=== PATIENT | female | born 1980 | race Caucasian/White ===

== ENCOUNTER 2016-09-10 16:00 | Emergency (ER) | payer OTHER ==
[2016-09-10 16:00] VITALS: BMI 17.7
[2016-09-10 16:09] VITALS: BP 98/66; TEMP 98.7
[2016-09-10 16:30] VITALS: PULSE 76; RESP 18; O2SAT 98
[2016-09-10] MEDS ORDERED: Sodium Chloride 0.9% 1,000 ML IV ONE (16:32)
--- NOTE | 2016-09-10 16:46 | C.PDOC ---
History Of Present Illness Patient is a 35-year-old female (), PMHx includes Anemia, Anxiety, Bronchitis, Depression, Gastritis, Gall Bladder Disease, and Herpes, presents to the emergency department with complaints of pelvic pain x 2 days. Pain is non -radiating and associated with nausea and vaginal bleeding (but only when she wipes). Patient denies fevers, vaginal discharge, back pain, dizziness, dysuria , or any other associated symptoms. LMP was end of June. . No other complaints at this time. Pt is unsure as to whether or not she's . PMD: Dr Brown Time Seen by Provider: 09/10/16 16:30 Chief Complaint (Nursing): Female Genitourinary History Per: Patient History/Exam Limitations: no limitations Onset/Duration Of Symptoms: Days (2) Current Symptoms Are (Timing): Still Present Severity: Moderate Past Medical History Reviewed: Historical Data, Nursing Documentation, Vital Signs Vital Signs: Last Vital Signs Temp 98.7 F 09/10/16 16:23 Pulse 76 09/10/16 16:23 Resp 18 09/10/16 16:23 BP 98/66 L 09/10/16 16:23 Pulse Ox 98 09/10/16 18:40 - Medical History PMH: Anemia, Anxiety, Bronchitis, Depression (NO MEDS), Gastritis, Gall Bladder Disease, Sexually Transmitted Disease (HERPES) Denies: Chronic Kidney Disease Other PMH: [facility]ct[facility] (had [facility] ESOPHAGOGASTRODUODENOSCOPY [EGD] W/CLOSED BIOPSY (03/04/14) Family History: States: No Known Family Hx - Social History Hx Tobacco Use: Yes Hx Alcohol Use: No Hx Substance Use: No - Immunization History Hx Tetanus Toxoid Vaccination: Yes Hx Influenza Vaccination: Yes Hx Pneumococcal Vaccination: Yes Review Of Systems Except As Marked, All Systems Reviewed And Found Negative. Constitutional: Negative for: Fever Gastrointestinal: Positive for: Nausea. Negative for: Vomiting Genitourinary: Positive for: Vaginal Bleeding, Pelvic Pain. Negative for: Dysuria, Frequency, Vaginal Discharge Musculoskeletal: Negative for: Back Pain Neurological: Negative for: Weakness, Numbness, Headache, Dizziness Physical Exam - Physical Exam Appears: Well, Non-toxic, No Acute Distress Skin: Warm, Dry, No Rash Head: Atraumatic, Normacephalic Eye(s): bilateral: Normal Inspection, EOMI Ear(s): Bilateral: Normal Nose: Normal Oral Mucosa: Moist Tongue: Normal Appearing Lips: Normal Appearing Teeth: Normal Dentition Throat: Normal Neck: Normal ROM Lymphatic: Deferred Chest: Symmetrical Cardiovascular: Rhythm Regular, No Murmur Respiratory: Normal Breath Sounds, No Accessory Muscle Use Gastrointestinal/Abdominal: Soft, Tenderness (mild, suprapubic and right pelvic) , No Guarding, No Rebound Rectal: Deferred Back: Normal Inspection Extremity: Normal ROM Extremity: Bilateral: Atraumatic, Normal ROM Pulses: Left Radial: Normal, Right Radial: Normal Neurological/Psych: Oriented x3, Normal Speech ED Course And Treatment - Laboratory Results Result Diagrams: 09/10/16 17:02 09/10/16 17:02 O2 Sat by Pulse Oximetry: 98 Medical Decision Making Medical Decision Making: Initial Impression: Threatened vs. ectopic Initial Plan: * Type and Screen * Beta HCG, CMP * CBC * IVF * UA/HCG * Reassess and Disposition Progress Note(s): 6:10 PM - Patient has returned from US. Awaiting US reading 6:28 PM - [facility] reading as noted below. Will d/c patient home. I explained to the pt that there is a strong possibility she will have a complete ( and to return to the ER if pain/symptoms worsen); otherwise, follow up with OB. Transvaginal ultrasound reading by [facility]: EXAM: US , Transvaginal CLINICAL HISTORY: 35 years old, female; Signs and symptoms; Lmp or gestational age (in weeks): ; Other: Vaginal bleeding/pain; ; Additional info: w/ vaginal bleeding; R/O ectopic TECHNIQUE: Real-time transvaginal obstetrical ultrasound of the maternal pelvis and a first trimester with image documentation. Transvaginal imaging was used for better evaluation of the fetus and adnexa. COMPARISON: No relevant prior studies available. FINDINGS: Gestation: A nabothian cyst is seen in the cervix. There is an intrauterine gestational sac measuring 3 x 0.8 x 1.4 cm. The sac is a somewhat elongated in the sagittal view. Intraluminal echoes are present within the sac. There is no yolk sac. There is no pole. Placenta/amniotic fluid: Cannot be adequately evaluated due to the early gestational age. Uterus/cervix: Unremarkable. No myometrial mass. Ovaries: The left ovary measures 3 x 2 x 2.5 cm. Subcentimeter follicles are present. Blood flow seen in the left ovary on pulsed Doppler examination. The right ovary measures 3.2 x 3.6 x 2 cm. Subcentimeter follicles are seen in the right ovary. A post demonstrated on pulsed Doppler examination. No mass. Free fluid: There is no free fluid in the posterior cul-de-sac. IMPRESSION: [facility] Final Radiology Report [id number] Name: JUNIOR CHRISTINA Age: 35Years F Date: 09/10/2016 SSN: [id number] : 1980 Study: US TRANSVAGINAL Requesting Physician: Albino Maza Images: 69 Addl Studies: [id number] - US TRANSABD FIRST TRIMESTER FIRST GEST (1) Provided Clinical History: w/ vaginal bleeding; r/o ectopic CONFIDENTIALITY STATEMENT This transmission is confidential and is intended to be a privileged communication. It is intended only for the use of the addressee. Access to this message by anyone else is unauthorized. If you are not the intended recipient, any disclosure, copying, distribution or any action taken, or omitted to be taken in reliance on it is prohibited and may be unlawful. If you received this communication in error, please notify us by telephone, so that return of this document to us can be arranged. Page 2 of 3 1. Single intrauterine gestational sac with a calculated age of 6 weeks and one day plus or -0 weeks and 4 days. The sac is misshapen which is worrisome for a nonviable . There is no yolk sac. There is no pole. Serial beta hCG measurement and followup ultrasound might be considered to determine viability. EXAM: US First Trimester, Transabdominal CLINICAL HISTORY: 35 years old, female; Signs and symptoms; Lmp or gestational age (in weeks): ; Other: Vaginal bleeding/pain; ; Additional info: w/ vaginal bleeding; R/O ectopic TECHNIQUE: Real-time transabdominal obstetrical ultrasound of the maternal pelvis and a first trimester with image documentation. EXAM DATE/TIME: Exam ordered 09/10/2016 4:58 PM COMPARISON: CT - ABD PELVIS W/O PO OR IV CONT 12/27/2014 2:57:35 PM FINDINGS: Gestation: The uterus measures 10.7 x 6.3 x 7.3 cm. There is a gestational sac noted within the uterus. Placenta/amniotic fluid: Cannot be adequately evaluated due to the early gestational age. Uterus/cervix: Unremarkable. No myometrial mass. [facility] Final Radiology Report [id number] Name: JUNIOR CHRISTINA Age: 35Years F Date: 09/10/2016 SSN: [id number] : 1980 Study: US TRANSVAGINAL Requesting Physician: Albino Maza Images: 69 Addl Studies: [id number] - US TRANSABD FIRST TRIMESTER FIRST GEST (1) Provided Clinical History: w/ vaginal bleeding; r/o ectopic CONFIDENTIALITY STATEMENT This transmission is confidential and is intended to be a privileged communication. It is intended only for the use of the addressee. Access to this message by anyone else is unauthorized. If you are not the intended recipient, any disclosure, copying, distribution or any action taken, or omitted to be taken in reliance on it is prohibited and may be unlawful. If you received this communication in error, please notify us by telephone, so that return of this document to us can be arranged. Page 3 of 3 Ovaries: The ovaries are not seen as separate structures. Free fluid: No free fluid. Bladder: The bladder is poorly distended. IMPRESSION: 1. A gestational sac is noted within the uterus. For a full description of findings, please see the report from the transvaginal ultrasound done at the same time. 2. The ovaries are not seen as separate structures. Thank you for allowing us to participate in the care of your patient. Dictated and Authenticated by: Tangela Garvin MD 09/10/2016 6:23 PM Eastern Time ([place] & [place] . Disposition - Disposition Disposition: HOME/ ROUTINE Disposition Time: 18:35 Condition: FAIR Additional Instructions: Ms. Christina, thank you for letting us take care of you. You have a "threatened miscarriage". If your pain worsens, bleeding worsens, or if you start passing large clots/ tissue, then please come back to the ER right away. Otherwise, please follow up with your Photographic Colorist/PART TIME RECEPTIONIST physician on Monday (Dr. Tanvi Amezquita?). Take Tylenol for the pain. You also have a urinary tract infection. Take the antibiotic listed below as prescribed. Prescriptions: Cephalexin [cephalexin] 1 tab PO BID #14 cap Instructions: Threatened Miscarriage (ED), Urinary Tract Infection in Women (ED ) Forms: General Discharge Instructions, [facility] (Welsh) Print Language: [place] - POA Present On Arrival: None - Clinical Impression Clinical Impression: Threatened miscarriage in early - Scribe Statement The provider has reviewed the documentation as recorded by the Scribe (Hallie Verma) All medical record entries made by the Scribe were at my direction and personally dictated by me. I have reviewed the chart and agree that the record accurately reflects my personal performance of the history, physical exam, medical decision making, and the department course for this patient. I have also personally directed, reviewed, and agree with the discharge instructions and disposition.
[2016-09-10 17:13] LABS: BASO # 0.1 K/uL (0.0-0.2); BASO % 1.2 % (0.0-2.0); EOS # 0.2 K/uL (0.0-0.7); EOS % 1.6 % (0.0-4.0); HEMATOCRIT 33.7 % (34.0-47.0); LYMPH # 2.4 K/uL (1.0-4.3); LYMPH % 25.2 % (20.0-40.0); MEAN CELL VOLUME 82.2 fL (81.0-99.0); MEAN CORPUSCULAR HEMOGLOBIN 27.3 pg (27.0-31.0); MEAN CORPUSCULAR HGB CONC 33.2 g/dL (33.0-37.0); MEAN PLATELET VOLUME 9.1 fL (7.2-11.7); MONO # 0.6 K/uL (0.0-0.8); MONO % 6.1 % (0.0-10.0); RED CELL DISTRIBUTION WIDTH 13.2 % (11.5-14.5); WHITE BLOOD COUNT 9.5 K/uL (4.8-10.8)
[2016-09-10 17:22] LABS: URINE BACTERIA FEW (<OCC); URINE BILIRUBIN NEGATIVE (NEGATIVE); URINE BLOOD 3+ (NEGATIVE); URINE COLOR Yellow (YELLOW); URINE GLUCOSE (UA) NORMAL (Normal); URINE KETONE NEGATIVE (NEGATIVE); URINE LEUKOCYTE ESTERASE 2+ Leu/uL (Negative); URINE PROTEIN 1+ mg/dL (NEGATIVE); URINE UROBILINOGEN NORMAL mg/dL (0.2-1.0); WBC URINE 27 /hpf (0-5)
[2016-09-10 17:31] LABS: CHLORIDE 103 mmol/L (98-107); RBC URINE 10 /hpf (0-3)
[2016-09-10 17:32] LABS: POTASSIUM 3.8 mmol/L (3.6-5.2); SODIUM 137 mmol/L (132-148)
[2016-09-10 17:34] LABS: BILIRUBIN,TOTAL 0.5 mg/dL (0.2-1.3); CARBON DIOXIDE 21 mmol/L (22-30); GFR AFRICAN-AMERICAN > 60
[2016-09-10 17:35] LABS: ALB/GLOB RATIO 1.2 (1.0-2.1); ALKALINE PHOSPHATASE 55 U/L (38-126); ALT/SGPT 19 U/L (9-52); AST/SGOT 14 U/L (14-36); BLOOD UREA NITROGEN 6 mg/dL (7-17); CALCIUM 8.7 mg/dl (8.6-10.4); GLUCOSE,RANDOM 81 mg/dL (65-105); TOTAL PROTEIN 6.6 g/dL (6.3-8.3)
[2016-09-10] MEDS ORDERED: cefTRIAXone IV 1 gm in Dextros 50 ML IV STA (17:45)
[2016-09-10] MEDS ORDERED: cefTRIAXone IV 1 gm in Dextros 50 ML IVPB ONE (18:24)
--- NOTE | 2016-09-10 18:24 | US ---
EXAM: US , Transvaginal CLINICAL HISTORY: 35 years old, female; Signs and symptoms; Lmp or gestational age (in weeks): 07/14/2016; Other: Vaginal bleeding/pain; ; Additional info: w/ vaginal bleeding; R/O ectopic TECHNIQUE: Real-time transvaginal obstetrical ultrasound of the maternal pelvis and a first trimester with image documentation. Transvaginal imaging was used for better evaluation of the fetus and adnexa. COMPARISON: No relevant prior studies available. FINDINGS: Gestation: A nabothian cyst is seen in the cervix. There is an intrauterine gestational sac measuring 3 x 0.8 x 1.4 cm. The sac is a somewhat elongated in the sagittal view. Intraluminal echoes are present within the sac. There is no yolk sac. There is no pole. Placenta/amniotic fluid: Cannot be adequately evaluated due to the early gestational age. Uterus/cervix: Unremarkable. No myometrial mass. Ovaries: The left ovary measures 3 x 2 x 2.5 cm. Subcentimeter follicles are present. Blood flow seen in the left ovary on pulsed Doppler examination. The right ovary measures 3.2 x 3.6 x 2 cm. Subcentimeter follicles are seen in the right ovary. A post demonstrated on pulsed Doppler examination. No mass. Free fluid: There is no free fluid in the posterior cul-de-sac. IMPRESSION: 1. Single intrauterine gestational sac with a calculated age of 6 weeks and one day plus or -0 weeks and 4 days. The sac is misshapen which is worrisome for a nonviable . There is no yolk sac. There is no pole. Serial beta hCG measurement and followup ultrasound might be considered to determine viability. EXAM: US First Trimester, Transabdominal CLINICAL HISTORY: 35 years old, female; Signs and symptoms; Lmp or gestational age (in weeks): 07/14/2016; Other: Vaginal bleeding/pain; ; Additional info: w/ vaginal bleeding; R/O ectopic TECHNIQUE: Real-time transabdominal obstetrical ultrasound of the maternal pelvis and a first trimester with image documentation. EXAM DATE/TIME: Exam ordered 09/10/2016 4:58 PM COMPARISON: CT - ABD PELVIS W/O PO OR IV CONT 12/27/2014 2:57:35 PM FINDINGS: Gestation: The uterus measures 10.7 x 6.3 x 7.3 cm. There is a gestational sac noted within the uterus. Placenta/amniotic fluid: Cannot be adequately evaluated due to the early gestational age. Uterus/cervix: Unremarkable. No myometrial mass. Ovaries: The ovaries are not seen as separate structures. Free fluid: No free fluid. Bladder: The bladder is poorly distended. IMPRESSION: 1. A gestational sac is noted within the uterus. For a full description of findings, please see the report from the transvaginal ultrasound done at the same time. 2. The ovaries are not seen as separate structures.
== END 2016-09-10 18:57 | disposition home or self-care (01) ==
LOC: C.ER 16:00
DX: O20.0 Threatened abortion (principal); Z3A.01 Less than 8 weeks gestation of pregnancy
CPT/HCPCS: 76805; 76817; 80053; 81001; 84702; 84703; 85025; 86850; 86900; 96361; 96365; 99285; J0696; J7040

== ENCOUNTER 2016-09-11 04:04 | Emergency (ER) | payer OTHER ==
[2016-09-11 04:06] VITALS: BMI 17.7
[2016-09-11 04:25] VITALS: RESP 18
[2016-09-11] MEDS ORDERED: Acetaminophen 650mg/20.3ml solution UD PO STA (04:48)
[2016-09-11] MEDS ORDERED: Sodium Chloride 0.9% 1,000 ML IV ONE (04:51)
[2016-09-11 04:55] LABS: BASO # 0.2 K/uL (0.0-0.2); BASO % 1.3 % (0.0-2.0); EOS # 0.2 K/uL (0.0-0.7); EOS % 1.3 % (0.0-4.0); HEMOGLOBIN 11.8 g/dL (11.0-16.0); LYMPH # 2.9 K/uL (1.0-4.3); LYMPH % 16.8 % (20.0-40.0); MEAN CELL VOLUME 81.8 fL (81.0-99.0); MEAN CORPUSCULAR HEMOGLOBIN 26.8 pg (27.0-31.0); MEAN CORPUSCULAR HGB CONC 32.8 g/dL (33.0-37.0); MEAN PLATELET VOLUME 8.8 fL (7.2-11.7); MONO % 5.8 % (0.0-10.0); NEUT # 12.8 K/uL (1.8-7.0); NEUT % 74.8 % (50.0-75.0); RBC 4.41 Mil/uL (3.80-5.20); RED CELL DISTRIBUTION WIDTH 13.1 % (11.5-14.5); WHITE BLOOD COUNT 17.1 K/uL (4.8-10.8)
--- NOTE | 2016-09-11 04:59 | C.PDOC ---
History Of Present Illness 35 year old female, P:0, who presents to the ER 8 weeks with a complaint of abdominal pain, vomiting, and vaginal bleeding. Patient was seen and evaluated earlier today in the ER and discharged with a diagnosis of a threatened . Patient presents now with worsening pain and bleeding now; denies fever or chills. Time Seen by Provider: 09/11/16 04:45 Chief Complaint (Nursing): Female Genitourinary History Per: Patient History/Exam Limitations: no limitations Onset/Duration Of Symptoms: Hrs Current Symptoms Are (Timing): Still Present Location Of Pain/Discomfort: Suprapubic Radiation Of Pain To:: None Quality Of Discomfort: Unable To Describe Associated Symptoms: Vomiting. denies: Fever, Chills Exacerbating Factors: None Alleviating Factors: None Recent travel outside of the [place]: No Abnormal Vaginal Bleeding: Yes Past Medical History Reviewed: Historical Data, Nursing Documentation, Vital Signs Vital Signs: Last Vital Signs Temp 98.1 F 09/11/16 06:34 Pulse 77 09/11/16 06:34 Resp 18 09/11/16 06:34 BP 100/67 09/11/16 06:34 Pulse Ox 99 09/11/16 06:34 - Medical History PMH: Anemia, Anxiety, Bronchitis, Depression (NO MEDS), Gastritis, Gall Bladder Disease, Sexually Transmitted Disease (HERPES) - [facility] Procedures ESOPHAGOGASTRODUODENOSCOPY [EGD] W/CLOSED BIOPSY (03/04/14) Family History: States: Unknown Family Hx - Social History Hx Tobacco Use: Yes Hx Alcohol Use: No Hx Substance Use: No - Immunization History Hx Tetanus Toxoid Vaccination: Yes Hx Influenza Vaccination: Yes Hx Pneumococcal Vaccination: Yes Review Of Systems Except As Marked, All Systems Reviewed And Found Negative. Constitutional: Negative for: Fever, Chills Gastrointestinal: Positive for: Vomiting, Abdominal Pain Genitourinary: Positive for: Vaginal Bleeding Physical Exam - Physical Exam Appears: Non-toxic Skin: Normal Color, Warm, Dry Head: Atraumatic, Normacephalic Oral Mucosa: Moist Chest: Symmetrical, No Tenderness Cardiovascular: Rhythm Regular, No Murmur Respiratory: Normal Breath Sounds, No Rales, No Rhonchi, No Wheezing Gastrointestinal/Abdominal: Soft, Tenderness (Suprapubic) Pelvic: Normal External Exam, Vaginal Bleeding (moderate), No Vaginal Discharge , No Cervix Open Neurological/Psych: Oriented x3, Normal Speech, Normal Cognition ED Course And Treatment - Laboratory Results Result Diagrams: 09/11/16 04:52 09/11/16 04:52 O2 Sat by Pulse Oximetry: 100 (Room air) Pulse Ox Interpretation: Normal Medical Decision Making Medical Decision Making: suspected miscarriage Plan: * Blood work * Urinalysis * Transvaginal US * Tylenol * Morphine * Zofran * IV fluids 612: noted decreased beta. US again shows gestational sac, no pole, yolk sac. noted leukocytosis, suspected inflamatory. pt already on antibiotics. case discussed with ob semiconductor development technician, dr garcía, advises pt can follow up outpt for non emergent D and C. pt advised to return to er with severe bleeding, pain, or any concern. recommends ibuprofen 600mg as needed for pain EXAM: US , Transvaginal CLINICAL HISTORY: 35 years old, female; Signs and symptoms; Lmp or gestational age (in weeks): ; Other: Preg/pain and bleeding; ; Additional info: Abd pain and TECHNIQUE: Real-time transvaginal obstetrical ultrasound of the maternal pelvis and a first trimester with image documentation. Transvaginal imaging was used for better evaluation of the fetus and adnexa. COMPARISON: No relevant prior studies available. FINDINGS: Gestation: Irregular gestational sac within lower uterine segment. No yolk sac. No pole. Mean sac diameter of 1.72 cm, correlating with gestational age of 6 weeks 0 days. Uterus/cervix: Thickened heterogeneous endometrium. Closed cervix, 2.4 cm in length. Ovaries: RIGHT ovary: Not visualized. LEFT ovary: Normal. No adnexal masses. Free fluid: Small free fluid within pelvis. IMPRESSION: 1. Findings suggestive of failure. 2. Incidental/non-acute findings are described above. Disposition - Disposition [facility]errals[facility] Robinson Rothman [Staff Provider] - Kavita García MD [Staff Provider] - Disposition: HOME/ ROUTINE Disposition Time: 06:15 Condition: STABLE Additional Instructions: please follow up with your obgyn. you may need an additional procedure. you white blood cell count was elevated in the er. youshould have this test repeated. pelase follow up in clinic. Prescriptions: Ibuprofen [Motrin Tab] 600 mg PO Q8 PRN #20 tab PRN Reason: Pain, Severe (8-10) Instructions: Spontaneous Miscarriage (ED), Threatened Miscarriage (ED) - Clinical Impression Clinical Impression: Miscarriage - Scribe Statement The provider has reviewed the documentation as recorded by the Scribnavarro Watts All medical record entries made by the Scribe were at my direction and personally dictated by me. I have reviewed the chart and agree that the record accurately reflects my personal performance of the history, physical exam, medical decision making, and the department course for this patient. I have also personally directed, reviewed, and agree with the discharge instructions and disposition.
[2016-09-11] MEDS ORDERED: Sodium Chloride 0.9% 1,000 ML ONE (05:01)
[2016-09-11] MEDS ORDERED: Morphine 4 MG/ML VIAL ONE (05:01)
[2016-09-11 05:09] LABS: INR 1.1; PROTHROMBIN TIME 11.9 SECONDS (9.7-12.2)
[2016-09-11 05:11] LABS: AST/SGOT 17 U/L (14-36); GFR AFRICAN-AMERICAN > 60; GFR NON-AFRICAN AMERICAN > 60
[2016-09-11 05:12] LABS: ALB/GLOB RATIO 1.2 (1.0-2.1); ALT/SGPT 18 U/L (9-52); BLOOD UREA NITROGEN 9 mg/dL (7-17); CALCIUM 9.3 mg/dl (8.6-10.4)
--- NOTE | 2016-09-11 06:07 | US ---
EXAM: US , Transvaginal CLINICAL HISTORY: 35 years old, female; Signs and symptoms; Lmp or gestational age (in weeks): 07/13/2016; Other: Preg/pain and bleeding; ; Additional info: Abd pain and TECHNIQUE: Real-time transvaginal obstetrical ultrasound of the maternal pelvis and a first trimester with image documentation. Transvaginal imaging was used for better evaluation of the fetus and adnexa. COMPARISON: No relevant prior studies available. FINDINGS: Gestation: Irregular gestational sac within lower uterine segment. No yolk sac. No pole. Mean sac diameter of 1.72 cm, correlating with gestational age of 6 weeks 0 days. Uterus/cervix: Thickened heterogeneous endometrium. Closed cervix, 2.4 cm in length. Ovaries: RIGHT ovary: Not visualized. LEFT ovary: Normal. No adnexal masses. Free fluid: Small free fluid within pelvis. IMPRESSION: 1. Findings suggestive of failure. 2. Incidental/non-acute findings are described above.
[2016-09-11 06:36] VITALS: BP 100/67; PULSE 77; TEMP 98.1
[2016-09-11 07:47] VITALS: O2SAT 100
== END 2016-09-11 06:40 | disposition home or self-care (01) ==
LOC: C.ER 04:04
DX: O03.9 Complete or unspecified spontaneous abortion without complication (principal)
CPT/HCPCS: 76817; 80053; 84702; 85025; 85610; 85730; 96361; 96374; 96375; 99285; J2270; J2405; J7040